=== PATIENT | male | born 1970 | race Two or more races ===

== ENCOUNTER 2024-12-26 22:32 | Inpatient (IN) | payer MEDICAID ==
[~2024-12-26] VITALS: Ht 165.1 cm; Wt 69.7 kg
[2024-12-27 00:50] VITALS: BP 118/77; TEMP 98.2; O2SAT 98
[2024-12-27] MEDS ORDERED: ONDANSETRON HCL/PF 4 MG/2 ML VIAL IVP PRN (02:00)
[2024-12-27] MEDS: PIPERACI/TAZO 3.375GM/D5W 50ML PB IV ONE (02:20)
[2024-12-27] MEDS: PIPERACILLIN /TAZOBACTAM 3.375 G in IV D5W 50 ML IV ONE (02:24)
[2024-12-27] MEDS: IV NS 0.9% 1,000 ML IV PRN ×2 (02:35→21:55)
[2024-12-27 07:47] LABS: PLATELET COUNT (AUTO) 245 K/uL (150-450); RED BLOOD CELL COUNT(AUTO) 5.00 MIL/uL (4.5-6.0); RED CELL DISTRIBUTION WIDTH 13.8 % (11.5-15.0); WHITE BLOOD COUNT (AUTO) 10.0 K/uL (4.3-11.0)
[2024-12-27 07:50] LABS: LDL 102 mg/dL (0-99)
[2024-12-27 07:51] LABS: INR 1.06 (0.91-1.10)
[2024-12-27 07:55] LABS: ASPARTATE AMINOTRANSFERASE 76 U/L (15-37); CALCIUM, SERUM 8.5 mg/dL (8.5-10.1); CREATININE 0.9 mg/dL (0.6-1.3); PHOSPHORUS 3.5 mg/dL (2.5-4.9); SODIUM SERUM 138 mmol/L (136-145); TOTAL PROTEIN, SERUM 6.5 g/dL (6.4-8.2); UREA NITROGEN, BLOOD 11 mg/dL (7-18)
[2024-12-27 08:00] VITALS: BP 118/72; TEMP 100.2; O2SAT 98
[2024-12-27] MEDS: PANTOPRAZOLE 40 MG VIAL IV SCH (09:21)
[2024-12-27] MEDS: PIPERACILLIN /TAZOBACTAM 3.375 G in IV D5W 100 ML IV SCH (11:27)
[2024-12-27] MEDS ORDERED: PIPERACILLIN /TAZOBACTAM 3.375 G in IV D5W 50 ML IV SCH (12:00)
[2024-12-27 16:00] VITALS: BP 121/72; TEMP 99; O2SAT 97
[2024-12-27 20:00] VITALS: BP 108/59; TEMP 99.3; O2SAT 97
[2024-12-27] MEDS ORDERED: IOHEXOL-300 100 ML VIAL IV ONE (21:35)
[2024-12-27] MEDS ORDERED: IV NS 0.9% 250 ML IV ONE (21:35)
[2024-12-27] MEDS: HYDROMORPHONE 1 MG/1 ML DISP.SYRIN IV PRN (22:23)
[2024-12-28 07:13] LABS: PLATELET COUNT (AUTO) 248 K/uL (150-450); RED BLOOD CELL COUNT(AUTO) 4.71 MIL/uL (4.5-6.0); RED CELL DISTRIBUTION WIDTH 13.3 % (11.5-15.0); WHITE BLOOD COUNT (AUTO) 10.6 K/uL (4.3-11.0)
[2024-12-28 07:36] LABS: ASPARTATE AMINOTRANSFERASE 31.0 U/L (15-37); CALCIUM, SERUM 8.5 mg/dL (8.5-10.1); CREATININE 1.1 mg/dL (0.6-1.3); SODIUM SERUM 139.0 mmol/L (136-145); TOTAL PROTEIN, SERUM 6.6 g/dL (6.4-8.2); UREA NITROGEN, BLOOD 14.0 mg/dL (7-18)
[2024-12-28 20:00] VITALS: BP 116/71; TEMP 98.6; O2SAT 96
[2024-12-29 06:28] LABS: PLATELET COUNT (AUTO) 240 K/uL (150-450); RED BLOOD CELL COUNT(AUTO) 4.48 MIL/uL (4.5-6.0); RED CELL DISTRIBUTION WIDTH 13.4 % (11.5-15.0); WHITE BLOOD COUNT (AUTO) 10.1 K/uL (4.3-11.0)
[2024-12-29 06:39] LABS: ASPARTATE AMINOTRANSFERASE 24.0 U/L (15-37); CALCIUM, SERUM 8.2 mg/dL (8.5-10.1); CREATININE 0.8 mg/dL (0.6-1.3); SODIUM SERUM 139.0 mmol/L (136-145); TOTAL PROTEIN, SERUM 6.4 g/dL (6.4-8.2); UREA NITROGEN, BLOOD 12.0 mg/dL (7-18)
[2024-12-29 08:33] VITALS: BP 120/70; TEMP 99.7; O2SAT 99
[2024-12-29] MEDS: POTASSIUM CL. PREMIX PERIPHER. 50 ML IV SCH (09:17)
[2024-12-29] MEDS ORDERED: ANESTHESIA TRAY IN PYXIS 1 EA TRAY MC ONE (13:24)
[2024-12-29] MEDS ORDERED: BUPIVACAINE 0.5 % PF 150 MG/30 ML VIAL ONE (13:25)
[2024-12-29] MEDS ORDERED: BUPIVACAINE MPF 0.5% W/EPI INJ 30 ML VIAL ONE (13:26)
[2024-12-29] MEDS ORDERED: LIDOCAINE 1% INJ 50 ML MDV IJ ONE (13:26)
[2024-12-29] MEDS ORDERED: MORPHINE SULFATE INJ 4 MG/ML DISP.SYRIN ONE (13:36)
[2024-12-29] MEDS ORDERED: FENTANYL PF 100MCG/2ML AMPUL ONE ×2 (13:36→19:43)
[2024-12-29] MEDS ORDERED: MIDAZOLAM HCL 2 MG/2ML VIAL ONE (13:36)
[2024-12-29] MEDS ORDERED: SUCCINYLCHOLINE CHLORIDE 20 MG/ML VIAL ONE (13:37)
[2024-12-29] MEDS ORDERED: ROCURONIUM BROMIDE 50 MG/5 ML ONE (13:37)
[2024-12-29] MEDS ORDERED: ONDANSETRON HCL/PF 4 MG/2 ML VIAL IVP PRN (15:30)
[2024-12-29] MEDS ORDERED: FENTANYL PF 100MCG/2ML AMPUL IV PRN (15:30)
[2024-12-29] MEDS: FENTANYL PF 100MCG/2ML AMPUL IV PRN (19:45)
[2024-12-29 20:15] VITALS: BP 145/84; TEMP 98.8; O2SAT 94
[2024-12-29 20:30] VITALS: BP 139/80; TEMP 98.8; O2SAT 95
[2024-12-29 20:45] VITALS: BP 141/84; TEMP 99; O2SAT 95
[2024-12-29 21:00] VITALS: BP 132/77; TEMP 99.1; O2SAT 95
[2024-12-29] MEDS: HYDROMORPHONE 1 MG/1 ML DISP.SYRIN IV PRN (21:18)
[2024-12-30 07:48] LABS: PLATELET COUNT (AUTO) 260 K/uL (150-450); RED BLOOD CELL COUNT(AUTO) 4.59 MIL/uL (4.5-6.0); RED CELL DISTRIBUTION WIDTH 13.6 % (11.5-15.0); WHITE BLOOD COUNT (AUTO) 8.8 K/uL (4.3-11.0)
[2024-12-30 07:56] LABS: CALCIUM, SERUM 8.3 mg/dL (8.5-10.1); CREATININE 0.8 mg/dL (0.6-1.3); SODIUM SERUM 143.0 mmol/L (136-145); UREA NITROGEN, BLOOD 8.0 mg/dL (7-18)
[2024-12-30 08:00] VITALS: BP 128/73; TEMP 99; O2SAT 95
[2024-12-30] MEDS: PANTOPRAZOLE 40 MG TABLET.DR PO SCH (09:51)
[2024-12-30 16:00] VITALS: BP 139/74; TEMP 100.4; O2SAT 96
[2024-12-30 20:00] VITALS: BP 124/74; TEMP 98.3; O2SAT 98
[2024-12-31 06:29] LABS: PLATELET COUNT (AUTO) 285 K/uL (150-450); RED BLOOD CELL COUNT(AUTO) 4.13 MIL/uL (4.5-6.0); RED CELL DISTRIBUTION WIDTH 13.1 % (11.5-15.0); WHITE BLOOD COUNT (AUTO) 8.0 K/uL (4.3-11.0)
[2024-12-31 06:45] LABS: CALCIUM, SERUM 8.2 mg/dL (8.5-10.1); CREATININE 0.8 mg/dL (0.6-1.3); SODIUM SERUM 138.0 mmol/L (136-145); UREA NITROGEN, BLOOD 7.0 mg/dL (7-18)
[2024-12-31 08:00] VITALS: BP_SYST 117; BP_SYST 147; BP_DIAS 73; BP_DIAS 75; TEMP 100.2; O2SAT 93; O2SAT 95
[2024-12-31 08:57] LABS: ASPARTATE AMINOTRANSFERASE 48.0 U/L (15-37); TOTAL PROTEIN, SERUM 6.5 g/dL (6.4-8.2)
[2024-12-31] MEDS: POTASSIUM CHLORIDE 20 MEQ TAB.PRT.SR PO SCH (09:27)
[2024-12-31 20:00] VITALS: BP 115/81; TEMP 99.7; O2SAT 97
[2025-01-01 08:00] VITALS: BP 114/75; TEMP 98.2; O2SAT 98
[2025-01-01] MEDS ORDERED: HYDR-3972 PO (19:25)
[2025-01-01] MEDS ORDERED: PANT40TA2 PO (19:25)
[2025-01-01] MEDS ORDERED: AMOX-430 PO (19:25)
== END 2025-01-01 15:00 | disposition home or self-care (01) | DRG 263 ==
LOC: MED 12-27 00:43
PROVIDERS: ADMIT Nurse Practitioner Acute Care; ATTEND Nurse Practitioner Acute Care
PROC: 0FC84ZZ Extirpation of Matter from Cystic Duct, Percutaneous Endoscopic Approach (ICD-10-PCS; 2024-12-29)
PROC: 0FT44ZZ Resection of Gallbladder, Percutaneous Endoscopic Approach (ICD-10-PCS; principal; 2024-12-29 14:00)
DX: K80.20 Calculus of gallbladder without cholecystitis without obstruction (principal); K85.10 Biliary acute pancreatitis without necrosis or infection; E80.6 Other disorders of bilirubin metabolism; E87.6 Hypokalemia; R74.01 Elevation of levels of liver transaminase levels; Z87.442 Personal history of urinary calculi; Z87.891 Personal history of nicotine dependence; N13.30 Unspecified hydronephrosis
CPT/HCPCS: 36415; 71045-TC; 74181-TC; 80048-TC; 80053-TC; 80061-TC; 80076-TC; 83690-TC; 83735-TC; 84100-TC; 85025-TC; 85610-TC; 86850-TC; 88304-TC; A4223; A6209; G0378; J0330; J1171; J2250; J2270; J2405; J2470; J2543; J2704; J2765; J3010; J3480; J3490; J7030; J7050; J7060; Q9967